=== PATIENT | male | born 1995 | race Caucasian/White ===

== ENCOUNTER 2021-04-12 17:50 | Emergency (ER) | payer MEDICAID, OTHER ==
[~2021-04-12] VITALS: Ht 170.2 cm; Wt 97.5 kg
[2021-04-12 17:54] VITALS: BP 135/75
--- NOTE | 2021-04-12 17:54 | NUR ---
PATIENT AMBULATED TO BED 11
--- NOTE | 2021-04-12 17:56 | NUR ---
25 Y/O MALE C/O RIGHT KNEE PAIN WITH SWELLING AND REDNESS X 3 DAYS. DENIES TRAUMA/INJURY. KNEE IS HOT TO TOUCH. PEDAL PULSES +2. PT IS AMBULATORY BUT STATES PAIN IS WORSE. AT THIS TIME, PT RATES PAIN 10/10 THAT HE DECRIBES STINGING. PT TOOK NAPROXEN 12 TODAY AND STATES IT HELPED RELIEVED THE PAIN. PT C/O "FEELING WARM" WITH CHILLS THIS MORNING. DENIES FEVER. PT A/O X4 WITH EVEN AND UNLABORED RESPIRATIONS. PT LAYING IN BED WITH BED IN LOWEST POSITION, BRAKES LOCKED, X2 SIDERAILS UP. PMH:DENIES NKDA
--- NOTE | 2021-04-12 17:57 | NUR ---
DR ROSE AT BEDSIDE EVALUATING PATIENT
--- NOTE | 2021-04-12 18:02 | NUR ---
flight data technician at pt bedside.
--- NOTE | 2021-04-12 19:03 | NUR ---
20 G IV ESTABLISHED TO R AC. BLOOD SAMPLES COLLECTED AND GIVEN TO [employer]CH[employer].
--- NOTE | 2021-04-12 19:13 | NUR ---
REPORT GIVEN TO DANAY HYDE, TRANSFER OF CARE AT THIS TIME.
--- NOTE | 2021-04-12 19:13 | NUR ---
REPORT RECEIVED FROM BARRETT CHAPIN FOR CONTINUATION OF CARE AT THIS TIME.
--- NOTE | 2021-04-12 19:15 | NUR ---
PATIENT LAYING IN BED LOCKED IN LOWEST POSITION, X1 SIDE RAIL UP. PATIENT CO OF R KNEE PAIN 9/10. SWELLING AND REDNESS NOTED TO R KNEE, PEDAL PULSE +2, CAP REFIL <3SEC. ERMD MADE AWARE OF PATIENT PAIN. BREATHING EVEN AND UNLABORED NAD NOTED, WILL CONTINUE TO MONITOR. MOTHER AT BED SIDE.
--- NOTE | 2021-04-12 19:15 | NUR ---
No open or closed wounds noted, area is warm, dry, swollen and red.
[2021-04-12 19:21] LABS: BASOPHILS % (AUTO) 0.2 % (0.0-2.0); EOSINOPHILS # (AUTO) 0.3 K/uL (0-0.4); EOSINOPHILS % (AUTO) 1.9 % (0.0-4.0); HEMATOCRIT 43.5 % (36-52); HEMOGLOBIN 14.5 g/dL (12.0-18.0); LYMPHOCYTES # (AUTO) 2.4 K/uL (2.0-11.5); LYMPHOCYTES % (AUTO) 15.6 % (20.5-51.1); MEAN CORPUSCULAR HEMOGLOBIN 29 pg (27-31); MEAN CORPUSCULAR HGB CONC 33 g/dL (33-37); MONOCYTES # (AUTO) 1.1 K/uL (0.8-1.0); MONOCYTES % (AUTO) 7.2 % (1.7-9.3); NEUTROPHILS # (AUTO) 11.5 K/uL (1.8-7.7); NEUTROPHILS % (AUTO) 75.1 % (42.2-75.2); PLATELET COUNT (AUTO) 235 K/uL (140-450); RED BLOOD CELL COUNT(AUTO) 5.06 MIL/uL (4.20-6.10); RED CELL DISTRIBUTION WIDTH 13.3 % (11.6-13.7); WHITE BLOOD COUNT (AUTO) 15.3 K/uL (4.8-10.8)
[2021-04-12] MEDS ORDERED: HYDROcodone/APAP 5/325 MG 1 TAB TAB PO ONE (19:45)
[2021-04-12] MEDS ORDERED: KETOROLAC 30 MG/ML VIAL IM ONE (19:45)
[2021-04-12 19:48] LABS: ALBUMIN 4.1 g/dL (3.4-5.0); ANION GAP 15.3 (8-16); CARBON DIOXIDE 24.2 mmol/L (21-32); CREATININE 1.2 mg/dL (0.6-1.3); POTASSIUM 3.5 mmol/L (3.5-5.1); TOTAL BILIRUBIN 0.4 mg/dL (0.0-1.0)
[2021-04-12] MEDS ORDERED: KETOROLAC 60 MG/2 ML VIAL IM ONE (20:10)
[2021-04-12] MEDS ORDERED: NACL 0.9% 1,000 ML IV ONE ×2 (20:40→22:05)
[2021-04-12] MEDS ORDERED: cefTRIAXone 1,000 MG VIAL ONE (20:42)
[2021-04-12] MEDS ORDERED: LIDOCAINE 2% 1000 MG/50 ML VIAL INJ ONE (21:15)
[2021-04-12] MEDS ORDERED: KETOROLAC 30 MG/ML VIAL IVP ONE (21:20)
--- NOTE | 2021-04-12 21:56 | NUR ---
Dr. Ma at patient bedside
--- NOTE | 2021-04-12 22:00 | NUR ---
Fluid sample collected from R knee by JULIUS, and walked to lab, handed to Kimmy from lab.
[2021-04-12] MEDS ORDERED: SULF-59 PO (22:24)
[2021-04-12] MEDS ORDERED: ACET-8386 PO (22:24)
[2021-04-12] MEDS ORDERED: IBUP-2213 PO (22:24)
[2021-04-12] MEDS ORDERED: CEPH500C16 PO (22:24)
[2021-04-12 23:17] LABS: APPEARANCE,SPUN,BODY FLUID CLEAR (CLEAR); APPEARANCE,UNSPUN,BODY FLUID HAZY (CLEAR); COLOR,BODY FLUID RED (LT YELLOW); SPECIMENTYPE,BODY FLUID KNEE FLD
[2021-04-12 23:18] LABS: POLYNUCLEAR, BODY FLUID 90 %; RBC, BODY FLUID 100 /cu. mm.; TOTAL VOLUME,BODY FLUID 5 mL; WBC, BODY FLUID 101 /cu. mm.
[2021-04-12 23:25] VITALS: BP 120/48
--- NOTE | 2021-04-12 23:25 | NUR ---
Patient discharged with v/s stable. Written and verbal after care instructions given and explained. Patient alert, oriented and verbalized understanding of instructions. Ambulatory with steady gait. All questions addressed prior to discharge. ID band removed. Patient advised to follow up with PMD. Rx of KEFLEX, BACTRIM, IBUPROFEN, NORCO given. Patient educated on indication of medication including possible reaction and side effects. Opportunity to ask questions provided and answered.
[2021-04-12 23:39] LABS: GLUCOSE,BODY FLUID 37 mg/dL
--- NOTE | 2021-04-15 16:44 | NUR ---
LATE ENTRY---Urine culture results received from lab. Results shown to Dr. Ma . No new orders needed at this time. Treatment appropriate. Copy placed in C&S folder.
== END 2021-04-12 23:25 | disposition home or self-care (01) ==
LOC: MED 17:50
DX: M71.561 Other bursitis, not elsewhere classified, right knee (principal); F12.90 Cannabis use, unspecified, uncomplicated; Z79.899 Other long term (current) drug therapy
CPT/HCPCS: 36415; 73562; 80053; 82945; 83605; 84157; 85025; 85651; 86140; 87040; 87070; 87186; 87205; 89051; 96361; 96365; 96375; 99284; J0696; J1885; J2001; J7030